=== PATIENT | female | born 1930 | race Hispanic/Latino ===

== ENCOUNTER 2017-03-04 20:26 | Emergency (ER) | payer MEDICARE ==
[2017-03-04 20:26] VITALS: BMI 29.2
--- NOTE | 2017-03-04 20:58 | ED PDOC ---
Arrival/HPI - General Chief Complaint: Abnormal Skin Integrity Time Seen by Provider: 03/04/17 20:48 Historian: Patient - History of Present Illness Narrative History of Present Illness (Text): 03/04/17 20:49 86 y/o female, nkda, c/o itching skin to the forearm and bilateral robin x 2 months. Pt. stated that she has scheduled appointment with the cook specialty in 3 weeks, seen at [facility] which improved with the steroid but return, admits wearing shorts and t-shirt to walk the dog to the park, no fever or chills, no headache or night sweat, no dizziness, no numbness or tingling, no other medical or psychological complaints. Past Medical History - Provider Review Nursing Documentation Reviewed: Yes - Infectious Disease Hx of Infectious Diseases: None - Tetanus Immunization Tetanus Immunization: Unknown - Pulmonary Hx Asthma: Yes Hx Chronic Obstructive Pulmonary Disease (COPD): Yes Hx Emphysema: Yes - Musculoskeletal/Rheumatological Hx Falls: No - Psychiatric Hx Depression: No Hx Emotional Abuse: No Hx Physical Abuse: No Hx Substance Use: No - Suicidal Assessment Feels Threatened In Home Enviroment: No Family/Social History - Physician Review Nursing Documentation Reviewed: Yes Family/Social History: Unknown Family HX Smoking Status: Heavy Smoker > 10 Cigarettes Daily Hx Alcohol Use: No Hx Substance Use: No Allergies/Home Meds Allergies/Adverse Reactions: Allergies No Known Allergies Allergy (Verified 03/04/17 20:34) Review of Systems - Review of Systems Constitutional: absent: Fatigue, Fevers Eyes: absent: Vision Changes ENT: absent: Hearing Changes Respiratory: absent: SOB, Cough Cardiovascular: absent: Chest Pain Gastrointestinal: absent: Abdominal Pain, Nausea, Vomiting Skin: Rash, Pruritis, Skin Lesions. absent: Laceration, Abscess, Ulcer Neurological: absent: Headache, Dizziness Physical Exam - Systems Exam Head: Present: Atraumatic, Normocephalic Pupils: Present: PERRL Extroacular Muscles: Present: EOMI Conjunctiva: Present: Normal Mouth: Present: Moist Mucous Membranes Neck: Present: Normal Range of Motion Respiratory/Chest: Present: Clear to Auscultation, Good Air Exchange. No: Respiratory Distress, Accessory Muscle Use Cardiovascular: Present: Regular Rate and Rhythm, Normal S1, S2. No: Murmurs Abdomen: Present: Normal Bowel Sounds. No: Tenderness, Distention, Peritoneal Signs Back: Present: Normal Inspection Upper Extremity: Present: Normal Inspection. No: Cyanosis, Edema Lower Extremity: Present: Normal Inspection. No: Edema Neurological: Present: GCS=15, Speech Normal, Motor Func Grossly Intact, Gait Normal, Memory Normal Skin: Present: Warm, Dry, Rashes (bilateral forearms extensor and bilateral tibial extensors visible lichenification papule rash appear to be eczema dermatitis, no streaking or ulceers, no cellulitis or ulcers, no vesicular lesions), Normal Color Psychiatric: Present: Alert, Oriented x 3, Normal Insight, Normal Concentration Medical Decision Making ED Course and Treatment: 03/04/17 21:02 -benadryl/decadron/pepcid -Discharge home with zyrtec, lotrisone, keep the skin cool and dry, follow up with your own pmd and cook specialty within 2 days, return to the ER for any new or worsening signs or symptoms. 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 Disposition/Present on Arrival - Present on Arrival Any Indicators Present on Arrival: No History of DVT/PE: No History of Uncontrolled Diabetes: No Urinary Catheter: No History of Decub. Ulcer: No History Surgical Site Infection Following: None - Disposition Have Diagnosis and Disposition been Completed?: Yes Diagnosis: Eczema Disposition: HOME/ ROUTINE Disposition Time: 21:05 Patient Plan: Discharge Condition: GOOD Additional Instructions: -Discharge home with zyrtec, lotrisone, keep the skin cool and dry, follow up with your own pmd and cook specialty within 2 days, return to the ER for any new or worsening signs or symptoms. Prescriptions: Cetirizine HCl [Zyrtec Allergy] 10 mg PO DAILY PRN #12 sgl PRN Reason: Other Clotrimazole/Betamethasone [Lotrisone] 1 appful EXT BID #60 g Referrals: Genesis Patel MD [Staff Provider] - Follow up with primary Forms: [employer] ([employer]
[2017-03-04] MEDS ORDERED: DiphenhydrAMINE 12.5 mg/5 ml LIQ UD (5 ml) PO STA (21:01)
[2017-03-04 21:02] VITALS: BP 150/76; PULSE 70; RESP 19; O2SAT 99
== END 2017-03-04 21:26 | disposition home or self-care (01) ==
LOC: ED 20:26
DX: L30.9 Dermatitis, unspecified (principal)
CPT/HCPCS: 96372; 99282; J1100